=== PATIENT | female | born 1975 | race African-American/Black ===

== ENCOUNTER 2022-02-17 23:25 | Emergency (ER) | payer OTHER ==
--- NOTE | 2022-02-17 23:57 | EDPHYS ---
Physician Documentation [facility] Name: Mannie Melo Age: 46 yrs Sex: Female : 1975 Arrival Date: 02/17/2022 Time: 23:28 Bed 14 Private MD: ED Physician Lex Anderson HPI: 02/17 23:50 This 46 yrs old Black Female presents to ER via EMS with complaints of Vomiting and cp Diarrhea. 23:50 The patient presents to the emergency department with nausea, that is moderate, cp vomiting, that is intermittent, diarrhea, 1 times today. Onset: The symptoms/episode began/occurred just prior to arrival. 23:50 Possible causes: blood pressure medication. Associated signs and symptoms: Pertinent cp negatives: abdominal pain, fever, GI bleeding, chest pain. Severity of symptoms: in the emergency department the symptoms have improved markedly. 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 - Social history:: Smoking status: Patient denies any tobacco usage or history of. ROS: 23:55 Constitutional: Negative for body aches, chills, fever, poor PO intake. cp 23:55 Eyes: Negative for injury, pain, redness, and discharge. cp 23:55 ENT: Negative for drainage from ear(s), ear pain, sore throat, difficulty swallowing, difficulty handling secretions. 23:55 Cardiovascular: Negative for chest pain, edema, palpitations. 23:55 Respiratory: Negative for cough, shortness of breath, wheezing. 23:55 Abdomen/GI: Positive for nausea, vomiting, and diarrhea, Negative for abdominal pain. 23:55 Back: Negative for pain at rest, pain with movement. 23:55 Neuro: Negative for altered mental status, headache, weakness. 23:55 All other systems are negative. Exam: 23:55 Constitutional: The patient appears in no acute distress, alert, awake, cp non-diaphoretic, non-toxic, well developed, well nourished. 23:55 Head/Face: Normocephalic, atraumatic. cp 23:55 Eyes: Periorbital structures: appear normal, Conjunctiva: normal, no exudate, no injection, Sclera: no appreciated abnormality, Lids and lashes: appear normal, bilaterally. 23:55 ENT: External ear(s): are unremarkable, Nose: is normal, Mouth: Lips: moist, Oral mucosa: pink and intact, moist, Posterior pharynx: Airway: no evidence of obstruction, patent. 23:55 Chest/axilla: Inspection: normal, Palpation: is normal, no crepitus, no tenderness. 23:55 Cardiovascular: Rate: normal, Rhythm: regular. 23:55 Respiratory: the patient does not display signs of respiratory distress, Respirations: normal, no use of accessory muscles, no retractions, labored breathing, is not present, Breath sounds: are clear throughout, no decreased breath sounds, no stridor, no wheezing. 23:55 Abdomen/GI: Inspection: abdomen appears normal, Bowel sounds: active, all quadrants, Palpation: abdomen is soft and non-tender, in all quadrants. 23:55 Back: CVA tenderness, is absent. 23:55 Neuro: Orientation: to person, place \T\ time. Mentation: is normal, Motor: moves all fours, strength is normal, Sensation: is normal. Vital Signs: 23:29 BP 145 / 86; Pulse 87; Resp 18 S; Temp 98.0(O); Pulse Ox 100% on R/A; Weight 88.9 kg as6 (R); Height 5 ft. 6 in. (167.64 cm) (R); Pain 0/10; 05 00:09 BP 138 / 98; Pulse 86; Resp 16 S; Pulse Ox 100% on R/A; as6 04 23:29 Body Mass Index 31.63 (88.90 kg, 167.64 cm) as6 MDM: 02/17 23:36 Patient medically screened. dunia 23:55 Differential diagnosis: gastritis, cholecystitis, pancreatitis, diverticulitis, viral cp gastroenteritis, gastroenteritis. 23:57 Data reviewed: vital signs, nurses notes. cp 23:57 Counseling: I had a detailed discussion with the patient and/or guardian regarding: the cp historical points, exam findings, and any diagnostic results supporting the discharge/admit diagnosis, to return to the emergency department if symptoms worsen or persist or if there are any questions or concerns that arise at home. ED course: VSS. Patient reports feeling much better and declines any labs at this time. Patient requesting discharge to home and is welcome to return at any time symptoms return. 02/17 23:49 Order name: EKG; Complete Time: 23:49 cp 02/17 23:49 Order name: Cardiac monitoring cp 02/17 23:49 Order name: EKG - Nurse/Tech cp 02/17 23:49 Order name: IV Saline Lock 02/17 23:49 Order name: Labs collected and sent 02/17 23:49 Order name: O2 Per Protocol 02/17 23:49 Order name: O2 Sat Monitoring cp Administered Medications: No medications were administered Disposition Summary: 02/17/22 23:57 Discharge Ordered Location: Home cp Problem: new cp Symptoms: have improved cp Condition: Stable cp Diagnosis - Nausea with vomiting, unspecified cp - Diarrhea, unspecified cp - Chest pain, unspecified cp Followup: cp - With: Private Physician - When: 1 - 2 days - Reason: Recheck today's complaints Discharge Instructions: - Discharge Summary Sheet cp - Nonspecific Chest Pain, Adult cp - Diarrhea, Adult cp - Nausea and Vomiting, Adult cp - Aspirin and Your Heart cp Forms: - Medication Reconciliation Form cp - Thank You Letter cp - Antibiotic Education cp - Prescription Opioid Use cp Signatures: Dispatcher [employer] EDLex Rascon MD MD cha Page, Corey, PA PA cp Bryce Teixeira, RN RN as6
--- NOTE | 2022-02-17 23:57 | ER ---
Nurse's Notes [facility] Name: Mannie Melo Age: 46 yrs Sex: Female : 1975 Arrival Date: 02/17/2022 Time: 23:28 Bed 14 Private MD: Diagnosis: Nausea with vomiting, unspecified;Diarrhea, unspecified;Chest pain, unspecified Presentation: 02/17 23:29 Chief complaint: EMS states: called out for n/v/d. pt report a increase in her as6 losartan. after she took her new dose pt vomited, felt dizzy, defecated on self. pt reports that now she feels back to normal. Coronavirus screen: At this time, the client does not indicate any symptoms associated with coronavirus-19. Ebola Screen: No symptoms or risks identified at this time. Initial Sepsis Screen: Does the patient meet any 2 criteria? No. Patient's initial sepsis screen is negative. Does the patient have a suspected source of infection? No. Patient's initial sepsis screen is negative. Risk Assessment: Do you want to hurt yourself or someone else? Patient reports no desire to harm self or others. Onset of symptoms was February 17, 2022. 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 - Social history:: Smoking status: Patient denies any tobacco usage or history of. Screenin:36 Abuse screen: Denies threats or abuse. Denies injuries from another. Nutritional as6 screening: No deficits noted. Tuberculosis screening: No symptoms or risk factors identified. Fall Risk None identified. Assessment: 23:36 General: Appears in no apparent distress. Behavior is calm, cooperative. Pain: Denies as6 pain. Neuro: Level of Consciousness is awake, alert. Respiratory: Respiratory effort is even, unlabored. 02/18 00:07 General: pt wanting to leave. provider notified. informed pt if need to return, and to as6 follow up with PCP. Vital Signs: 02/17 23:29 BP 145 / 86; Pulse 87; Resp 18 S; Temp 98.0(O); Pulse Ox 100% on R/A; Weight 88.9 kg as6 (R); Height 5 ft. 6 in. (167.64 cm) (R); Pain 0/10; 02/18 00:09 BP 138 / 98; Pulse 86; Resp 16 S; Pulse Ox 100% on R/A; as6 02/17 23:29 Body Mass Index 31.63 (88.90 kg, 167.64 cm) as6 ED Course: 02/17 23:28 Patient arrived in ED. as6 23:28 Bryce Teixeira, RN is Primary Nurse. as6 23:28 Lex Rojas PA is PHCP. cp 23:28 Lex Anderson MD is Attending Physician. cp 23:35 Triage completed. as6 23:36 Arm band placed on. as6 23:36 Bed in low position. Call light in reach. Side rails up X2. as6 23:40 Maintain EMS IV. Dressing intact. Good blood return noted. Site clean \T\ dry. Gauge \T\ as 6 site: 22g right forearm . 02/18 00:06 No provider procedures requiring assistance completed. as6 00:07 IV discontinued, intact, bleeding controlled, No redness/swelling at site. Pressure as6 dressing applied. Administered Medications: No medications were administered Medication: 00:07 VIS not applicable for this client. as6 Outcome: 02/17 23:57 Discharge ordered by . cp 02/18 00:07 Discharged to home ambulatory. as6 Condition: stable Discharge instructions given to patient, Instructed on discharge instructions, follow up and referral plans. Demonstrated understanding of instructions, follow-up care. 00:10 Patient left the ED. as6 Signatures: Lex Rojas PA PA cp Bryce Teixeira, RN RN as6
[2022-02-18 00:58] VITALS: TEMP 98; O2SAT 100
[2022-02-18 01:00] VITALS: BP 138/98
== END 2022-02-18 00:10 | disposition home or self-care (01) ==
LOC: ER 23:25
DX: R11.2 Nausea with vomiting, unspecified (principal); R07.9 Chest pain, unspecified; R19.7 Diarrhea, unspecified; I10 Essential (primary) hypertension; E11.9 Type 2 diabetes mellitus without complications; Z88.8 Allergy status to other drugs, medicaments and biological substances
CPT/HCPCS: 99283

== ENCOUNTER 2022-11-19 16:59 | Emergency (ER) | payer SELFPAY ==
--- OUTSIDE RECORDS SUMMARY | 2022-11-19 17:01 | XMS REPORT | Continuity of Care Document ---
:1975 Author Organization [facility] t Address [address] [place] [address] Care Team Providers Name Role Phone JOSE A LUQUE Attending Clinician Unavailable Problems This patient has no known problems. Allergies, Adverse Reactions, Alerts This patient has no known allergies or adverse reactions. Medications This patient has no known medications. Procedures This patient has no known procedures. Encounters Start End Encounter Admission Attending Care Care Encounter Source Date/Time Date/Time Type Type Clinicians Facility Department ID 2021-07-10 2021-07-10 Emergency ER YENNY LUQUE [facility] [id number] 20:49:00 22:33:00 JOSE A [id number] [facility] Results This patient has no known results.
[2022-11-19 18:25] LABS: Absolute Lymphocytes (CBC) 3.6 K/uL (0.7-4.9); Hematocrit 40.2 % (36.0-45.0); Lymphocytes % 35.6 % (15.3-44.8); MCV 92.6 fL (80-100); MPV 7.2 fL (7.6-11.3); RBC Red Blood Cell Count 4.34 M/uL (3.86-4.86)
[2022-11-19 18:38] LABS: Albumin 4.2 g/dL (3.4-5.0); Bilirubin Total 0.5 mg/dL (0.2-1.0); Potassium 3.4 mEq/L (3.5-5.1); Protein, Total 7.8 g/dL (6.4-8.2)
--- NOTE | 2022-11-19 19:19 | RAD REPORT ---
EXAM DESCRIPTION: CTAbdomen Pelvis W Contrast - 11/19/2022 7:11 pm CLINICAL HISTORY: Abdominal pain. ABD PAIN COMPARISON: No comparisons TECHNIQUE: Biphasic CT imaging of the abdomen and pelvis was performed with 100 ml non-ionic IV cont rast. All CT scans are performed using dose optimization technique as appropriate and may include automated exposure control or mA/KV adjustment according to patient size. FINDINGS: The lung bases are clear. The liver, spleen, pancreas, adrenal glands and kidneys are within normal limits. Benign left renal c yst. No bowel obstruction, free air, free fluid or abscess. The appendix is not identified as a discrete structure, however, no secondary findings of appendicitis are identified. No evidence of significan t lymphadenopathy. No suspicious bony findings. 4 cm cyst is present in the posterior pelvis, probably parovarian. IMPRESSION: No acute intra-abdominal or pelvic finding.
[2022-11-19 19:27] LABS: Specific Gravity 1.024 (1.005-1.030); Urine Bacteria None Seen /HPF (<20); Urine Bilirubin NEGATIVE (Negative); Urine Blood 1+ (Negative); Urine Clarity Turbid (Clear); Urine Color Light-Yellow (Yellow); Urine Glucose NEGATIVE (Negative); Urine Mucus 2+ /HPF (None Seen); Urine Protein 1+ (Negative); Urine RBC <5 /HPF (None Seen); Urine Urobilinogen Normal (Normal); Urine pH 5.5 (5.0-7.0)
[2022-11-19 19:28] LABS: Specific Gravity 1.024 (1.005-1.030)
--- NOTE | 2022-11-19 19:58 | EDPHYS ---
Physician Documentation [facility] Name: Mannie Melo Age: 47 yrs Sex: Female : 1975 Arrival Date: 11/19/2022 Time: 16:59 Bed 15 Private MD: ED Physician Lex Anderson HPI: 11/19 17:50 This 47 yrs old Black Female presents to ER via Wheelchair with complaints of Abdominal cp Pain. 17:50 The patient presents with abdominal pain in the lower abdomen. cp 17:50 Onset: The symptoms/episode began/occurred this morning. cp 17:50 The symptoms radiate to low back. Associated signs and symptoms: Pertinent positives: cp nausea and vomiting, Pertinent negatives: blood in stools, chest pain, constipation, diarrhea, dysuria, fever, headache. The symptoms are described as constant. Historical: - Allergies: 17:32 Dilaudid; aa5 - PMHx: 17:32 diabetes mellitus; Hypertensive disorder; aa5 - PSHx: 17:32 Partial hysterectomy; aa5 - Immunization history:: Adult Immunizations unknown. - Social history:: Smoking status: Patient denies any tobacco usage or history of. ROS: 18:00 Constitutional: Negative for body aches, chills, fever, poor PO intake. cp 18:00 Eyes: Negative for injury, pain, redness, and discharge. cp 18:00 Cardiovascular: Negative for chest pain, palpitations. 18:00 Respiratory: Negative for cough, shortness of breath, wheezing. 18:00 Abdomen/GI: Positive for abdominal pain, nausea, Negative for vomiting, diarrhea, constipation. 18:00 Back: Positive for radiated pain, of the low back, Negative for injury or acute deformity. 18:00 : Negative for urinary symptoms, vaginal bleeding, vaginal discharge. 18:00 Neuro: Negative for altered mental status, dizziness, headache, syncope, weakness. 18:00 All other systems are negative. Exam: 18:05 Constitutional: The patient appears in no acute distress, alert, awake, non-toxic, well cp developed, well nourished, uncomfortable. 18:05 Head/Face: Normocephalic, atraumatic. cp 18:05 Eyes: Periorbital structures: appear normal, Conjunctiva: normal, no exudate, no injection, Sclera: no appreciated abnormality, Lids and lashes: appear normal, bilaterally. 18:05 ENT: External ear(s): are unremarkable, Nose: is normal, Mouth: Lips: moist, Oral mucosa: pink and intact, moist, Posterior pharynx: is normal, airway is patent, no erythema, no exudate. 18:05 Chest/axilla: Inspection: normal. 18:05 Cardiovascular: Rate: normal. 18:05 Respiratory: the patient does not display signs of respiratory distress, Respirations: normal, no use of accessory muscles, no retractions, labored breathing, is not present, Breath sounds: are clear throughout, no decreased breath sounds, no stridor, no wheezing. 18:05 Abdomen/GI: Inspection: abdomen appears normal, Bowel sounds: active, all quadrants, Palpation: soft, in all quadrants, moderate abdominal tenderness, in the right lower quadrant and left lower quadrant, rebound tenderness, is not appreciated. 18:05 Back: CVA tenderness, is absent. 18:05 Skin: no rash present. Vital Signs: 17:29 BP 141 / 98; Pulse 83; Resp 16 S; Temp 98.2(TE); Pulse Ox 97% on R/A; Weight 89.36 kg aa5 (R); Height 5 ft. 4 in. (R); 20:53 BP 139 / 79; Pulse 82; Resp 16; Temp 98.3; Pulse Ox 99% on R/A; aa9 17:29 Body Mass Index 33.81 (89.36 kg, 162.56 cm) aa5 MDM: 17:34 Patient medically screened. 18:00 Differential diagnosis: appendicitis, diverticulitis, Endometriosis, non-specific abd cp pain, Pyelonephritis, Ureterolithiasis, urinary tract infection, vaginitis, PID, ovarian cyst. 19:56 Data reviewed: vital signs, nurses notes, lab test result(s), radiologic studies, CT cp scan. 19:56 I considered the following discharge prescriptions or medication management in the emergency department Medications were administered in the Emergency Department. See MAR. Counseling: I had a detailed discussion with the patient and/or guardian regarding: the historical points, exam findings, and any diagnostic results supporting the discharge/admit diagnosis, lab results, radiology results, the need for outpatient follow up, a family practitioner, to return to the emergency department if symptoms worsen or persist or if there are any questions or concerns that arise at home. Response to treatment: the patient's symptoms have markedly improved after treatment, and as a result, I will discharge patient. Special discussion: Based on the patient's Hx, exam, and Dx evaluation, there is no indication for emergent surgery or inpatient Tx. It is understood by the patient/guardian that if the Sx's persist or worsen they need to return immediately for re-evaluation. 11/19 17:39 Order name: CBC with Diff; Complete Time: 19:42 cp 11/19 19:42 Interpretation: Reviewed. cp 11/19 17:39 Order name: CMP; Complete Time: 19:42 cp 11/19 19:42 Interpretation: Normal except: NA 135; K 3.4; AST 10; GLOB 3.6. cp 11/19 17:39 Order name: Lipase; Complete Time: 19:42 cp 11/19 17:39 Order name: Test, Urine; Complete Time: 19:42 cp 11/19 17:39 Order name: Urinalysis w/ reflexes; Complete Time: 19:42 cp 11/19 19:42 Interpretation: Normal except: UCLA Turbid; UKET 2+; UBLD 1+; UPROT 1+. cp 11/19 17:39 Order name: CT Abd/Pelvis - IV Contrast Only; Complete Time: 19:42 cp 11/19 17:39 Order name: IV Saline Lock; Complete Time: 20:11 cp 11/19 17:39 Order name: Labs collected and sent; Complete Time: 20:11 cp Administered Medications: 20:11 Drug: NS 0.9% IV 1000 ml Route: IV; Rate: 1 bolus; Site: right antecubital; aa9 20:51 Follow up: Response: No adverse reaction; IV Status: Completed infusion; IV Intake: aa9 500ml 20:11 Drug: Ondansetron IVP 4 mg Route: IVP; Site: right antecubital; aa9 20:52 Follow up: Response: No adverse reaction aa9 20:11 Drug: morphine IVP or IV 4 mg Route: IVP; Infused Over: 4 mins; Site: right antecubital;aa9 20:52 Follow up: Response: No adverse reaction aa9 20:51 Drug: Potassium PO Effervescent Tablet 50 mEq Route: PO; aa9 20:52 Follow up: Response: No adverse reaction aa9 Disposition Summary: 11/19/22 19:57 Discharge Ordered Location: Home cp Problem: new cp Symptoms: have improved cp Condition: Stable cp Diagnosis - Other and unspecified ovarian cysts cp Followup: cp - With: Private Physician - When: 1 week - Reason: Recheck today's complaints Discharge Instructions: - Discharge Summary Sheet cp - Ovarian Cyst cp Forms: - Work release form bd - Medication Reconciliation Form cp - Thank You Letter cp - Antibiotic Education cp - Prescription Opioid Use cp Prescriptions: - Ibuprofen 800 mg Oral Tablet - take 1 tablet by ORAL route every 8 hours As needed take with food; 30 tablet; cp Refills: 0, Product Selection Permitted - Tramadol 50 mg Oral Tablet - take 1 tablet by ORAL route every 8 hours as needed; 12 tablet; Refills: 0, cp Product Selection Permitted Signatures: Dispatcher [employer] Lary Puga RN RN aa5 Lex Rojas PA PA cp Mini Matthews RN RN aa9 Corrections: (The following items were deleted from the chart) 17:32 17:32 PSHx: Total abdominal hysterectomy; aa5 aa5
--- NOTE | 2022-11-19 19:58 | ER ---
Nurse's Notes [facility] Name: Mannie Melo Age: 47 yrs Sex: Female : 1975 Arrival Date: 11/19/2022 Time: 16:59 Bed 15 Private MD: Diagnosis: Other and unspecified ovarian cysts Presentation: 11/19 17:29 Chief complaint: Patient states: RLQ pain that began this morning. Pt reports nausea, aa5 denies vomiting. 17:29 Coronavirus screen: At this time, the client does not indicate any symptoms associated aa5 with coronavirus-19. Ebola Screen: Patient denies travel to an Ebola-affected area in the 21 days before illness onset. Initial Sepsis Screen: Does the patient meet any 2 criteria? No. Patient's initial sepsis screen is negative. Does the patient have a suspected source of infection? No. Patient's initial sepsis screen is negative. Risk Assessment: Do you want to hurt yourself or someone else? Patient reports no desire to harm self or others. Onset of symptoms was November 19, 2022. 17:29 Method Of Arrival: Wheelchair aa5 17:29 Acuity: ALIVIA 3 aa5 Triage Assessment: 20:53 General: Appears distressed. Pain: Complains of pain in ABD. GI: No signs and/or aa9 symptoms were reported involving the gastrointestinal system. Historical: - Allergies: 17:32 Dilaudid; aa5 - PMHx: 17:32 diabetes mellitus; Hypertensive disorder; aa5 - PSHx: 17:32 Partial hysterectomy; aa5 - Immunization history:: Adult Immunizations unknown. - Social history:: Smoking status: Patient denies any tobacco usage or history of. Screenin:52 [facility] ED Fall Risk Assessment (Adult) History of falling in the last 3 months, aa9 including since admission No falls in past 3 months (0 pts) Confusion or Disorientation No (0 pts) Intoxicated or Sedated No (0 pts) Impaired Gait No (0 pts) Mobility Assist Device Used No (0 pt) Altered Elimination No (0 pt) Score/Fall Risk Level 0 - 2 = Low Risk Oriented to surroundings, Maintained a safe environment, Educated pt \T\ family on fall prevention, incl call for assistance when getting out of bed. Abuse screen: Denies threats or abuse. Denies injuries from another. Nutritional screening: No deficits noted. Tuberculosis screening: No symptoms or risk factors identified. Assessment: 20:53 Reassessment: Patient appears in no apparent distress at this time. Patient and/or aa9 family updated on plan of care and expected duration. Pain level reassessed. Patient is alert, oriented x 3, equal unlabored respirations, skin warm/dry/pink. Patient states symptoms have improved. Vital Signs: 17:29 BP 141 / 98; Pulse 83; Resp 16 S; Temp 98.2(TE); Pulse Ox 97% on R/A; Weight 89.36 kg aa5 (R); Height 5 ft. 4 in. (R); 20:53 BP 139 / 79; Pulse 82; Resp 16; Temp 98.3; Pulse Ox 99% on R/A; aa9 17:29 Body Mass Index 33.81 (89.36 kg, 162.56 cm) aa5 ED Course: 17:00 Patient arrived in ED. rg4 17:28 Lex Rojas PA is PHCP. cp 17:28 Lex Anderson MD is Attending Physician. cp 17:29 Arm band placed on. aa5 17:32 Triage completed. aa5 17:52 Radiology exam delayed due to lab results not completed at this time. (BUN/Creatinine) jg10 test not completed at this time. IV insertion attempt and/or patient not having appropriate IV at this time. 19:12 CT Abd/Pelvis - IV Contrast Only In Process Unspecified. EDMS 19:44 Mini Matthews, RN is Primary Nurse. aa9 20:53 Patient has correct armband on for positive identification. Placed in gown. Bed in low aa9 position. Side rails up X2. Pulse ox on. NIBP on. 20:53 No provider procedures requiring assistance completed. IV discontinued, intact, aa9 bleeding controlled, No redness/swelling at site. Pressure dressing applied. Administered Medications: 20:11 Drug: NS 0.9% IV 1000 ml Route: IV; Rate: 1 bolus; Site: right antecubital; aa9 20:51 Follow up: Response: No adverse reaction; IV Status: Completed infusion; IV Intake: aa9 500ml 20:11 Drug: Ondansetron IVP 4 mg Route: IVP; Site: right antecubital; aa9 20:52 Follow up: Response: No adverse reaction aa9 20:11 Drug: morphine IVP or IV 4 mg Route: IVP; Infused Over: 4 mins; Site: right antecubital;aa9 20:52 Follow up: Response: No adverse reaction aa9 20:51 Drug: Potassium PO Effervescent Tablet 50 mEq Route: PO; aa9 20:52 Follow up: Response: No adverse reaction aa9 Medication: 20:53 VIS not applicable for this client. aa9 Intake: 20:51 IV: 500ml; Total: 500ml. aa9 Outcome: 19:57 Discharge ordered by . cp 20:53 Discharged to home via wheelchair, with significant other. aa9 20:53 Condition: stable 20:53 Discharge instructions given to patient, Instructed on discharge instructions, follow up and referral plans. medication usage, Demonstrated understanding of instructions, follow-up care, medications, Prescriptions given X 2. 20:54 Patient left the ED. aa9 Signatures: Dispatcher [employer] EDLary Dodd RN RN aa5 Lex Rojas PA PA cp Garcia, Rubi 4 Mini Matthews RN RN aa9 Karla Szymanski jg10 Corrections: (The following items were deleted from the chart) 17:32 17:32 PSHx: Total abdominal hysterectomy; aa5 aa5
[2022-11-19] MEDS ORDERED: NA CHLORIDE 0.9% 1,000 ML ONE (20:05)
[2022-11-19] MEDS ORDERED: ONDANSETRON 4 MG/2 ML VIAL ONE (20:05)
[2022-11-19] MEDS ORDERED: MORPHINE 4 MG/ML SYR ONE (20:06)
[2022-11-19] MEDS ORDERED: POTASSIUM 25 MEQ EFFERV TAB ONE (20:42)
[2022-11-19 22:22] VITALS: BP 139/79; TEMP 98.3; O2SAT 99
== END 2022-11-19 20:54 | disposition home or self-care (01) ==
LOC: ER 16:59
DX: N83.299 Other ovarian cyst, unspecified side (principal)
CPT/HCPCS: 36415; 74177; 80053; 81001; 81025; 83690; 85025; 96361; 96374; 96375; 99284; J2405; J7030; Q9967